=== PATIENT | female | born 1985 | race African-American/Black ===

== ENCOUNTER 2020-01-25 14:55 | Inpatient (IN) | payer MEDICAID, OTHER ==
[~2020-01-25] VITALS: Ht 157.5 cm; Wt 80.7 kg
[~2020-01-25 14:55] MED LIST: CHLO10TA10
[2020-01-25] MEDS ORDERED: ACETAMINOPHEN 325MG TABLET PO STA (15:05)
[2020-01-25] MEDS ORDERED: SODIUM CHLORIDE 0.9% 1,000 ML IV ONE ×2 (15:05→19:45)
[2020-01-25 15:39] LABS: HEMATOCRIT. 30.3 % (36.0-48.0); HEMOGLOBIN. 9.7 g/dL (12.0-16.0); MEAN CORPUSCULAR HEMOGLOBIN 26.8 pg (28.0-32.0); MEAN CORPUSCULAR VOLUME 83.8 fL (81.0-99.0); PLATELET 264 x1000/uL (130-400); RED BLOOD CELL COUNT 3.61 mill/uL (4.2-5.4); RED CELL DISTRIBUTION WIDTH 15.3 % (11.6-14.6)
[2020-01-25 15:40] LABS: CLARITY URINE CLEAR (CLEAR); COLOR URINE YELLOW (YELLOW); KETONES URINE NEGATIVE (NEGATIVE); LEUKOCYTE ESTERASE URINE TRACE (NEGATIVE); NITRITE URINE NEGATIVE (NEGATIVE); OCCULT BLOOD URINE NEGATIVE (NEGATIVE); PROTEIN URINE TRACE (NEGATIVE); SPECIFIC GRAVITY URINE 1.019 (1.005-1.030)
[2020-01-25 15:46] LABS: CHLORIDE 106 mEq/L (98-107)
[2020-01-25 16:04] LABS: PLATELET ESTIMATE NORMAL
[2020-01-25] MEDS ORDERED: ACETAMINOPHEN 650MG SUPP PR STA (16:57)
[2020-01-25] MEDS ORDERED: KETOROLAC 30MG/ML VIAL IV STA (16:57)
[2020-01-25] MEDS ORDERED: CEFTRIAXONE 1 G PREMIX 50 ML IV ONE (17:00)
[2020-01-25] MEDS ORDERED: AZITHROMYCIN 500 MG in DEXT 5% WATER 250 ML IV ONE (17:00)
[2020-01-25] MEDS ORDERED: MORPHINE SULFATE 4 MG/ML CPJ (NOT FOR IM USE) IV STA (18:39)
[2020-01-25] MEDS ORDERED: ONDANSETRON HCL 4MG/2ML INJ IV STA (18:39)
[2020-01-25] MEDS ORDERED: ACETAMINOPHEN WITH CODEINE 300/30MG TABLET PO ONE (18:45)
[2020-01-25] MEDS ORDERED: KCL 20MEQ/100ML PREMIX 100 ML IV ONE (19:45)
[2020-01-26] VITALS (7 sets, daily range): BP systolic 92–105; BP diastolic 50–70
[2020-01-26] MEDS ORDERED: LEVO175T7 PO (01:29)
[2020-01-26] MEDS: LEVOTHYROXINE SODIUM 175MCG TABLET PO SCH (05:20)
[2020-01-26] MEDS: ACETAMINOPHEN 325MG TABLET PO PRN ×2 (07:53→21:11)
[2020-01-26 08:56] LABS: BASOPHILS % 0.3 % (0.0-2.0); EOSINOPHILS % 0.1 % (0.0-5.0); HEMATOCRIT. 28.5 % (36.0-48.0); HEMOGLOBIN. 9.1 g/dL (12.0-16.0); LYMPHOCYTES % 9.3 % (20.0-50.0); MEAN CORPUSCULAR HEMOGLOBIN 27.1 pg (28.0-32.0); MEAN CORPUSCULAR VOLUME 84.7 fL (81.0-99.0); MEAN PLATELET VOLUME 8.8 fl (7.4-10.4); MONOCYTES % 4.5 % (2.0-8.0); NEUTROPHILS % 85.8 % (40.0-76.0); PLATELET 238 x1000/uL (130-400); RED BLOOD CELL COUNT 3.37 mill/uL (4.2-5.4); RED CELL DISTRIBUTION WIDTH 15.4 % (11.6-14.6)
[2020-01-26 09:06] LABS: CHLORIDE 112 mEq/L (98-107)
[2020-01-26] MEDS ORDERED: BENZONATATE 100MG CAPSULE PO PRN (10:15)
[2020-01-26] MEDS ORDERED: ENOXAPARIN 100MG/ML SYR SUBCUT NR (12:00)
[2020-01-26] MEDS: GUAIFENESIN 600MG ER TABLET PO SCH ×3 (12:01→21:00)
[2020-01-26] MEDS: ZINC SULFATE 220 MG ( 50 ) CAPSULE PO SCH (12:01)
[2020-01-26] MEDS: ASCORBIC ACID 500 MG TABLET PO SCH ×2 (12:01→20:52)
[2020-01-26] MEDS ORDERED: HYDROCODONE/ACETAMINOPHEN 5/325MG TABLET PO PRN (13:30)
[2020-01-26] MEDS ORDERED: ONDANSETRON HCL 4MG/2ML INJ IV PRN (13:30)
[2020-01-26] MEDS: CEFTRIAXONE 1 G PREMIX 50 ML IV SCH (17:19)
[2020-01-26] MEDS: AZITHROMYCIN 250 MG TABLET PO SCH (17:19)
[2020-01-26 19:39] LABS: TOTAL IRON BINDING CAPACITY 277 ug/dL (250-450)
[2020-01-26] MEDS: THIAMINE HCL 100MG TABLET PO SCH (20:52)
[2020-01-26] MEDS: ENOXAPARIN 80MG/0.8ML SYR SUBCUT SCH (20:52)
[2020-01-27] VITALS: BP 107/77
[2020-01-27 04:00] VITALS: BP 108/81
[2020-01-27] MEDS: LEVOTHYROXINE SODIUM 175MCG TABLET PO SCH (06:37)
[2020-01-27 08:00] VITALS: BP 116/80
[2020-01-27] MEDS: ENOXAPARIN 80MG/0.8ML SYR SUBCUT SCH ×2 (09:13→21:00)
[2020-01-27] MEDS: ASCORBIC ACID 500 MG TABLET PO SCH ×2 (09:13→21:06)
[2020-01-27] MEDS: THIAMINE HCL 100MG TABLET PO SCH ×2 (09:13→21:06)
[2020-01-27] MEDS: ZINC SULFATE 220 MG ( 50 ) CAPSULE PO SCH (09:13)
[2020-01-27] MEDS: GUAIFENESIN 600MG ER TABLET PO SCH ×2 (09:13→21:05)
[2020-01-27] MEDS: DOCUSATE SODIUM 250MG CAPSULE PO SCH (09:16)
[2020-01-27 12:00] VITALS: BP 132/89
[2020-01-27] MEDS: FERROUS SULFATE 325MG TABLET PO SCH ×2 (12:36→17:37)
[2020-01-27 16:00] VITALS: BP 123/81
[2020-01-27] MEDS: CEFTRIAXONE 1 G PREMIX 50 ML IV SCH (17:37)
[2020-01-27] MEDS: AZITHROMYCIN 250 MG TABLET PO SCH (17:37)
[2020-01-27 18:03] LABS: BASOPHILS % 0.6 % (0.0-2.0); EOSINOPHILS % 1.7 % (0.0-5.0); HEMATOCRIT. 30.9 % (36.0-48.0); HEMOGLOBIN. 9.8 g/dL (12.0-16.0); LYMPHOCYTES % 20.9 % (20.0-50.0); MEAN CORPUSCULAR HEMOGLOBIN 26.8 pg (28.0-32.0); MEAN CORPUSCULAR VOLUME 84.2 fL (81.0-99.0); MEAN PLATELET VOLUME 8.1 fl (7.4-10.4); MONOCYTES % 4.4 % (2.0-8.0); NEUTROPHILS % 72.4 % (40.0-76.0); PLATELET 284 x1000/uL (130-400); RED BLOOD CELL COUNT 3.68 mill/uL (4.2-5.4); RED CELL DISTRIBUTION WIDTH 15.7 % (11.6-14.6)
[2020-01-27 18:10] LABS: CHLORIDE 106 mEq/L (98-107)
[2020-01-27 18:16] LABS: D-DIMER 0.96 mg/L FEU (<0.50); PROTHROMBIN TIME 10.5 sec (9.6-11.0)
[2020-01-27 18:25] LABS: HCG SCREEN NEGATIVE
[2020-01-27 20:00] VITALS: BP 109/77
[2020-01-27] MEDS: IPRATROPIUM/ALBUTEROL 0.5-3(2.5)MG/3ML NEB HHN SCH (22:28)
[2020-01-28] VITALS: BP 110/72
[2020-01-28 04:00] VITALS: BP 100/65
[2020-01-28] MEDS: IPRATROPIUM/ALBUTEROL 0.5-3(2.5)MG/3ML NEB HHN SCH ×2 (05:11→08:52)
[2020-01-28 05:56] LABS: BASOPHILS % 1.1 % (0.0-2.0); EOSINOPHILS % 2.6 % (0.0-5.0); HEMATOCRIT. 28.4 % (36.0-48.0); HEMOGLOBIN. 9.1 g/dL (12.0-16.0); LYMPHOCYTES % 29.2 % (20.0-50.0); MEAN CORPUSCULAR HEMOGLOBIN 26.8 pg (28.0-32.0); MEAN CORPUSCULAR VOLUME 83.9 fL (81.0-99.0); MEAN PLATELET VOLUME 8.5 fl (7.4-10.4); MONOCYTES % 4.4 % (2.0-8.0); NEUTROPHILS % 62.7 % (40.0-76.0); PLATELET 269 x1000/uL (130-400); RED BLOOD CELL COUNT 3.39 mill/uL (4.2-5.4); RED CELL DISTRIBUTION WIDTH 15.3 % (11.6-14.6)
[2020-01-28] MEDS: LEVOTHYROXINE SODIUM 175MCG TABLET PO SCH (07:03)
[2020-01-28 08:00] VITALS: BP 107/66
[2020-01-28] MEDS: FERROUS SULFATE 325MG TABLET PO SCH (08:56)
[2020-01-28] MEDS: DOCUSATE SODIUM 250MG CAPSULE PO SCH ×2 (08:56→09:00)
[2020-01-28] MEDS: ZINC SULFATE 220 MG ( 50 ) CAPSULE PO SCH (08:56)
[2020-01-28] MEDS: ASCORBIC ACID 500 MG TABLET PO SCH (08:57)
[2020-01-28] MEDS: GUAIFENESIN 600MG ER TABLET PO SCH (08:57)
[2020-01-28] MEDS: ENOXAPARIN 80MG/0.8ML SYR SUBCUT SCH ×2 (08:57→09:00)
[2020-01-28] MEDS: THIAMINE HCL 100MG TABLET PO SCH (08:57)
[2020-01-28] MEDS ORDERED: FERR325T23 PO (09:41)
[2020-01-28] MEDS ORDERED: DOCU250C14 PO (09:41)
[2020-01-28] MEDS ORDERED: AMOX-424 MT (09:41)
[2020-01-28] MEDS ORDERED: AZIT250T12 MT (09:41)
[2020-01-28 10:35] VITALS: BP 107/66
== END 2020-01-28 10:50 | disposition home or self-care (01) | DRG 720 ==
LOC: ER 14:55 → EDBEDREQ 18:44 → 7EST 19:25 → EDBEDREQ 19:39 → ENRESERV 01-26 00:13 → 6EST 01-27 16:08
PROVIDERS: ADMIT Internal Medicine; ATTEND Internal Medicine
DX: A41.9 Sepsis, unspecified organism (principal); J96.00 Acute respiratory failure, unspecified whether with hypoxia or hypercapnia; J69.0 Pneumonitis due to inhalation of food and vomit; E87.6 Hypokalemia; J45.909 Unspecified asthma, uncomplicated; E03.9 Hypothyroidism, unspecified; Z20.828 Contact with and (suspected) exposure to other viral communicable diseases; D64.9 Anemia, unspecified; D72.810 Lymphocytopenia; Z98.891 History of uterine scar from previous surgery; Z79.2 Long term (current) use of antibiotics; Z79.890 Hormone replacement therapy; Z79.899 Other long term (current) drug therapy; Z71.3 Dietary counseling and surveillance
CPT/HCPCS: 36415; 71045; 80048; 80053; 81003; 82728; 83540; 83550; 83615; 84703; 85025; 85379; 87635; 87804; 93005; 99285; J0456; J0696; J1650; J1885; J2270; J2405; J3480; J7030; J7060

== ENCOUNTER 2022-09-02 12:46 | Emergency (ER) | payer MEDICAID, OTHER ==
[~2022-09-02] VITALS: Ht 167.6 cm; Wt 150.0 kg
[~2022-09-02 12:46] MED LIST changes: +AMOX-424 MT; +AZIT250T12 MT; -CHLO10TA10; +DOCU250C14 PO; +FERR325T23 PO; +LEVO175T7 PO
[2022-09-02] MEDS ORDERED: MIDAZOLAM HCL 2 MG/2 ML VIAL IM ONE (13:30)
[2022-09-02] MEDS ORDERED: OLANZAPINE 10 MG/VIAL IM ONE (13:30)
[2022-09-02 15:44] LABS: BASOPHILS % 0.9 % (0.0-2.0); EOSINOPHILS % 0.8 % (0.0-5.0); HEMATOCRIT. 32.8 % (36.0-48.0); HEMOGLOBIN. 10.4 g/dL (12.0-16.0); LYMPHOCYTES % 24.5 % (20.0-50.0); MEAN CORPUSCULAR HEMOGLOBIN 25.2 pg (28.0-32.0); MEAN PLATELET VOLUME 7.7 fl (7.4-10.4); MONOCYTES % 4.9 % (2.0-8.0); NEUTROPHILS % 68.9 % (40.0-76.0); PLATELET 361 x1000/uL (130-400); RED BLOOD CELL COUNT 4.15 mill/uL (4.2-5.4); RED CELL DISTRIBUTION WIDTH 16.1 % (11.6-14.6)
[2022-09-02 16:00] LABS: CHLORIDE 109 mEq/L (98-107)
[2022-09-02 16:08] LABS: ETHANOL BLOOD < 10 mg/dL
[2022-09-02 16:10] LABS: HCG SCREEN NEGATIVE
[2022-09-02 18:47] LABS: CLARITY URINE CLEAR (CLEAR); COLOR URINE YELLOW (YELLOW); KETONES URINE TRACE (NEGATIVE); LEUKOCYTE ESTERASE URINE NEGATIVE (NEGATIVE); NITRITE URINE NEGATIVE (NEGATIVE); OCCULT BLOOD URINE NEGATIVE (NEGATIVE); PH URINE 7.5 (4.5-8.0); PROTEIN URINE NEGATIVE (NEGATIVE); SPECIFIC GRAVITY URINE 1.022 (1.005-1.030)
[2022-09-02 18:49] VITALS: BP 129/75
[2022-09-02 18:56] LABS: *AMPHETAMINES SCREEN URINE NEGATIVE (NEGATIVE); *BARBITURATES SCREEN URINE NEGATIVE (NEGATIVE); *BENZODIAZEPINES SCREEN URINE NEGATIVE (NEGATIVE); *COCAINE SCREEN URINE NEGATIVE (NEGATIVE); CANNABINOID URINE SCREEN NEGATIVE (NEGATIVE); METHADONE URINE SCREEN NEGATIVE (NEGATIVE); OPIATES URINE SCREEN NEGATIVE (NEGATIVE); PHENCYCLIDINE URINE SCREEN NEGATIVE (NEGATIVE)
[2022-09-02] MEDS ORDERED: CALCIUM GLUCONATE 100MG/ML 10ML VIAL IV NR (20:00)
[2022-09-02 20:16] LABS: BG BASE EXCESS -0.8 mmol/L (-2.0-2.0); BG CARBOXYHEMOGLOBIN 0.1 % (0.5-1.5); BG DEOXYHEMOGLOBIN 1.5 % (0.0-5.0); BG FRACTION INSPIRED OXYGEN 21; BG HCO3 ACT 17.8 mmol/L (22.0-26.0); BG METHEMOGLOBIN 0.2 % (0.0-1.5); BG OXYGEN SATURATION 98.5 % (92.0-98.5); BG OXYHEMOGLOBIN 98.2 % (94.0-97.0); BG PCO2 16.7 mmHg (35.0-45.0); BG PH 7.645 (7.350-7.450); BG PO2 99.3 mmHg (75.0-100.0); BG SAMPLE SITE RIGHT RADIAL; BG VENT MODE ROOM AIR
[2022-09-02] MEDS ORDERED: LORAZEPAM 1MG TABLET PO NR (21:15)
[2022-09-02 21:37] LABS: BG BASE EXCESS -3.3 mmol/L (-2.0-2.0); BG CARBOXYHEMOGLOBIN 0.3 % (0.5-1.5); BG DEOXYHEMOGLOBIN 2.3 % (0.0-5.0); BG FRACTION INSPIRED OXYGEN 21; BG HCO3 ACT 19.3 mmol/L (22.0-26.0); BG METHEMOGLOBIN 0.3 % (0.0-1.5); BG OXYGEN SATURATION 97.7 % (92.0-98.5); BG OXYHEMOGLOBIN 97.1 % (94.0-97.0); BG PCO2 27.5 mmHg (35.0-45.0); BG PH 7.465 (7.350-7.450); BG SAMPLE SITE RIGHT RADIAL; BG TOTAL HEMOGLOBIN 11.2 g/dL (12.0-18.0); BG VENT MODE ROOM AIR
== END 2022-09-02 23:08 | disposition home or self-care (01) ==
LOC: ER 12:46
DX: F41.9 Anxiety disorder, unspecified (principal); R07.89 Other chest pain; R45.851 Suicidal ideations; I10 Essential (primary) hypertension; J45.909 Unspecified asthma, uncomplicated; E03.9 Hypothyroidism, unspecified; Z20.822 Contact with and (suspected) exposure to COVID-19; Z98.890 Other specified postprocedural states
CPT/HCPCS: 36415; 36600; 71045; 80053; 80305; 80307; 80320; 80329; 81003; 82375; 82805; 84484; 84703; 85025; 87426; 93005; 96374; 99285; C9803; J0610; Z7610; G0480

== ENCOUNTER 2023-03-07 19:07 | Emergency (ER) | payer MEDICAID ==
[~2023-03-07] VITALS: Ht 167.6 cm; Wt 90.0 kg
[2023-03-07 19:08] VITALS: BP 145/95
[2023-03-07 20:38] LABS: BASOPHILS % 0.9 % (0.0-2.0); EOSINOPHILS % 0.7 % (0.0-5.0); HEMATOCRIT. 33.8 % (36.0-48.0); HEMOGLOBIN. 10.4 g/dL (12.0-16.0); LYMPHOCYTES % 25.8 % (20.0-50.0); MEAN CORPUSCULAR HEMOGLOBIN 24.1 pg (28.0-32.0); MEAN CORPUSCULAR VOLUME 78.1 fL (81.0-99.0); MEAN PLATELET VOLUME 7.8 fl (7.4-10.4); MONOCYTES % 6.9 % (2.0-8.0); NEUTROPHILS % 65.7 % (40.0-76.0); PLATELET 414 x1000/uL (130-400); RED BLOOD CELL COUNT 4.33 mill/uL (4.2-5.4); RED CELL DISTRIBUTION WIDTH 16.8 % (11.6-14.6)
[2023-03-07 20:56] LABS: CHLORIDE 107 mEq/L (98-107)
[2023-03-07 21:03] LABS: HCG SCREEN NEGATIVE
[2023-03-07] MEDS ORDERED: LEVO175T7 PO (21:25)
[2023-03-07] MEDS ORDERED: FERR325T23 PO (21:25)
== END 2023-03-07 21:34 | disposition home or self-care (01) ==
LOC: ER 19:07
DX: R07.89 Other chest pain (principal); R55 Syncope and collapse; F41.9 Anxiety disorder, unspecified; J45.909 Unspecified asthma, uncomplicated; I10 Essential (primary) hypertension
CPT/HCPCS: 36415; 71045; 80053; 81025; 84703; 85025; 93005; 99285